=== PATIENT | female | born 1970 | race Caucasian/White ===

== ENCOUNTER 2020-06-25 21:09 | Observation (INO) | payer BC ==
[~2020-06-25] VITALS: Ht 162.6 cm; Wt 74.8 kg
[2020-06-25 22:15] LABS: HEMOGLOBIN 15.5 gm/dl (12.3-15.3); RED BLOOD COUNT 5.05 M/UL (4.00-5.10); WHITE BLOOD COUNT 10.9 K/UL (4.5-11.0)
[2020-06-25 22:41] LABS: BUN/CREATININE RATIO 12 (0-10)
[2020-06-26] MEDS ORDERED: SINGULAIR10 MG PO (03:44)
[2020-06-26] MEDS ORDERED: SYMBICORT 160-1 INHA INH (03:45)
[2020-06-26] MEDS ORDERED: PROAIR HFA8.5 GM INH (03:45)
[2020-06-26] MEDS ORDERED: EMGALITY120 MG/1 M SQ (03:45)
[2020-06-26] MEDS ORDERED: MELATONIN5 M2 PO (03:46)
[2020-06-26] MEDS ORDERED: VICTOZA 1818 MG/3 ML SC (03:48)
[2020-06-26] MEDS ORDERED: BUTALB-ACETAMI1 EACH PO (03:48)
[2020-06-26] MEDS ORDERED: NURTEC ODT75 MG PO (03:48)
[2020-06-26] MEDS ORDERED: ZIPSOR25 MG PO (03:49)
[2020-06-26] MEDS ORDERED: CYCLOBENZAPRINE5 MG PO (03:49)
[2020-06-26 05:49] LABS: HEMOGLOBIN 14.3 gm/dl (12.3-15.3); RED BLOOD COUNT 4.74 M/UL (4.00-5.10)
[2020-06-26 05:50] LABS: WHITE BLOOD COUNT 16.7 K/UL (4.5-11.0)
[2020-06-26 06:18] LABS: BUN/CREATININE RATIO 18 (0-10)
[2020-06-26] MEDS ORDERED: VISTARIL 25 MG25 MG PO (09:36)
[2020-06-26] MEDS ORDERED: MEDROL DOSEPAK 24 MG PO (09:36)
[2020-06-26] MEDS ORDERED: ZOFRAN ODT 4 MG4 MG PO (09:36)
== END 2020-06-26 13:50 | disposition home or self-care (01) ==
LOC: ER1 21:09 → CDU 06-26 00:48 → MED SURG 4 06-26 03:00
PROVIDERS: Family Medicine; ADMIT Internal Medicine
DX: T80.52XA Anaphylactic reaction due to vaccination, initial encounter (principal); T50.B95A Adverse effect of other viral vaccines, initial encounter; Y84.8 Other medical procedures as the cause of abnormal reaction of the patient, or of later complication, without mention of misadventure at the time of the procedure; L27.0 Generalized skin eruption due to drugs and medicaments taken internally; I47.1 Supraventricular tachycardia; R06.02 Shortness of breath; R50.9 Fever, unspecified; R11.0 Nausea; J45.909 Unspecified asthma, uncomplicated; Z88.0 Allergy status to penicillin; Z20.822 Contact with and (suspected) exposure to COVID-19
CPT/HCPCS: 36415; 80048; 80053; 82550; 82553; 83874; 84484; 85025; 93005; 96365; 96375; 96376; 99285; G0378; J1200; J1885; J2405; J2930; U0002